=== PATIENT | male | born 1990 | race African-American/Black ===

== ENCOUNTER 2019-07-23 11:24 | Outpatient (CLI) | payer OTHER, SELFPAY ==
--- NOTE | ~2019-07-23 | XR_ITS ---
EXAMINATION: XR chest 2V DATE: 07/23/2019 12:26 INDICATION: Tobacco dependence. TECHNIQUE: Frontal and lateral views of the chest were obtained. COMPARISON: None. FINDINGS: The chest demonstrates clear lungs without pneumonia, pleural effusion, or pneumothorax. Th e heart size is normal. There is mild chronic anterior wedging of 2 midthoracic vertebral bodies. IMPRESSION: 1. No acute cardiopulmonary disease. Reviewed, dictated and finalized at location A. [employer] RECREATIONAL THERAPIST
--- NOTE | ~2019-07-23 | XR_ITS ---
EXAMINATION: XR knee RT min 4V DATE: 07/23/2019 12:26 INDICATION: Right knee pain. Effusion. TECHNIQUE: 4 views of right knee were obtained. COMPARISON: None. FINDINGS: Bone alignment is normal. There is mild tricompartmental osteoarthritis characterized by ti ny marginal osteophytes. No knee joint effusion. IMPRESSION: 1. Mild right knee osteoarthritis. Reviewed, dictated and finalized at location A. ECTOR PACKER
== END 2019-07-23 11:25 | disposition home or self-care (01) ==
PROVIDERS: Visit Provider Emergency Medicine
DX: M25.461 Effusion, right knee (principal); M17.11 Unilateral primary osteoarthritis, right knee
CPT/HCPCS: 71046; 73564

== ENCOUNTER 2020-06-22 06:51 | Outpatient (NON) | payer OTHER, SELFPAY ==
[2020-06-23 00:16] LABS: SARS-CoV-2 RNA PCR Negative
== END 2020-06-22 06:52 ==
LOC: ANHCOVIDDT 07:03
PROVIDERS: PCP Emergency Medicine; Visit Provider Emergency Medicine
DX: R68.89 Other general symptoms and signs (principal); Z20.822 Contact with and (suspected) exposure to COVID-19
CPT/HCPCS: C9803; U0003; U0005

== ENCOUNTER 2023-03-08 09:29 | Outpatient (CLI) | payer OTHER, SELFPAY ==
[2023-03-08 10:57] LABS: SARS-CoV-2 RNA PCR Positive (Negative)
== END 2023-03-08 09:30 | disposition home or self-care (01) ==
LOC: ANHLAB 09:30
PROVIDERS: PCP Emergency Medicine; Visit Provider Emergency Medicine
DX: R09.81 Nasal congestion (principal); Z20.822 Contact with and (suspected) exposure to COVID-19
CPT/HCPCS: 87635

== ENCOUNTER 2025-03-09 08:20 | Emergency (ER) | payer OTHER, SELFPAY ==
--- NOTE | 2025-03-09 08:22 | ED.ANIMALBIT ---
HPI - Animal Bite General Chief Complaint: Wound/Laceration Stated Complaint: dog bite Time Seen by Provider: 03/09/25 08:22 Source: patient Mode of arrival: ambulatory Limitations: no limitations History of Present Illness HPI narrative: Олег is a 34-year-old male patient presenting to the clinic today with complaints of dog bite to his right forearm. He reports at 6:30 a.m. this morning he was reaching down to change out the water bowl for a dog and the dog was eating out of his food bowl. The dog bit his right forearm causing to deep puncture wound-1 to the volar aspect in 1 to the dorsal forearm, and 3 abraded areas to the right forearm. Bleeding is controlled. Patient reports he did wash with soap and water. Has not taken anything for pain. Dog is UTD on vaccines. Tetanus is not up today. Related Data Home Medications ?Medication ?Instructions ?Recorded ?Confirmed ?Last Taken ?Type divalproex 500 mg tablet,delayed mg PO 03/09/25 Unknown History release sertraline 50 mg tablet mg 03/09/25 Unknown History Allergies Allergy/AdvReac Type Severity Reaction Status Date / Time No Known Allergies Allergy Mild Verified 03/09/25 08:42 Review of Systems Review of Systems: Pertinent positives per HPI. Patient denies any fever, chills, rash, headache, visual changes, dizziness, cough, runny nose, sore throat, shortness of breath, chest pain, palpitations, nausea, vomiting, diarrhea, constipation, abdominal pain, or any urinary issues. PMFSH Comments At the time of my signature, I reviewed and agree with the nursing past medical, surgical, social, and family history. There is no relevant family history pertinent to the patient complaint. Exam Narrative: General: Well-developed, well nourished, in no apparent distress Head: Normocephalic, atraumatic. Cardio: Regular rate and rhythm, s1 and s2 normal, no murmur appreciated. Resp: Clear to auscultation bilaterally, no rhonchi, rales, wheezing or rubs. Musculoskeletal: No deformity, non-tender to palpation, grossly normal range of motion, muscle strength strong and equal, peripheral pulse strong, no edema, no cyanosis, normal gait and statio Integumentary: [place], warm, and dry, 1 cm gapping puncture wound to the dorsal mid forearm and the volar mid forearm, has 3 superficial abraded puncture wounds- 1 to lateral forearm and 1 dorsal and 1 volar, bleeding controlled Course Course Emergency Course: Portions of this record may have been created with voice recognition software. Level of Care: Express Care Visit Vital Signs Vital signs: Vital Signs Temperature 36.4 C L 03/09/25 08:35 Pulse Rate 57 L 03/09/25 08:35 Respiratory Rate 16 03/09/25 08:35 Blood Pressure 169/93 H 03/09/25 08:35 Pulse Oximetry 95 03/09/25 08:35 Oxygen Delivery Room Air 03/09/25 08:35 Temperature 36.4 C L 03/09/25 08:35 Pulse Rate 57 L 03/09/25 08:35 Respiratory Rate 16 03/09/25 08:35 Blood Pressure 169/93 H 03/09/25 08:35 Pulse Oximetry 95 03/09/25 08:35 Oxygen Delivery Room Air 03/09/25 08:35 Vital signs reviewed MDM - Animal Bite MDM Narrative Medical decision making narrative: At the time of visit patient is resting comfortably on the exam table. Patient appears to be nontoxic. Complaints of dog bite to his right forearm. He reports at 6:30 a.m. this morning he was reaching down to change out the water bowl for a dog and the dog was eating out of his food bowl. The dog bit his right forearm causing to deep puncture wound-1 to the volar aspect in 1 to the dorsal forearm, and 3 abraded areas to the right forearm. Bleeding is controlled. Patient reports he did wash with soap and water. Has not taken anything for pain. Tetanus is not up today. On exam patient has 2 deep puncture wounds to the volar and dorsal forearm. Has 3 small abraded puncture wounds that do not require any treatment. Wounds were cleansed with soap and water and Steri-Strips and benzoin was applied to bring with puncture wound edges well approximate but allow for drainage. On exam 1 cm gapping puncture wound to the dorsal mid forearm and the volar mid forearm, has 3 superficial abraded puncture wounds- 1 to lateral forearm and 1 dorsal and 1 volar, bleeding controlled. Tdap, wound cleansing, and steri strips ordered. Medications: Tdap 0.5ml IM given in the clinic today. Plan: Patient has dog bite wound to the right [id number] applied over large gaping puncture wound. Tetanus shot was updated. Will send in prescription for Augmentin to cover for secondary infection. Dog was up-to-date on vaccinations and this was a provoked bite so I do not feel that rabies vaccine is needed. Recommend wound check in 2-3 days. Supportive measures were discussed with the patient and they voiced understanding discharge instructions and agrees to treatment plan. Return precautions reviewed Differential Diagnosis Differential diagnosis: Likely bite by animal, dog bite and rabies contact Discharge Plan Discharge Clinical Impression: Dog bite of right forearm Patient Disposition: Home Condition: Stable Instructions: Antibiotic Form, Animal Bite (ED) Additional Instructions: Tetanus updated in the clinic today Take Augmentin as prescribed May apply ice pack to help alleviate swelling May take Tylenol/ibuprofen as needed for pain as per bottle directions Leave bandage on for 24 hours then may remove and apply band aide covering as needed. Keep wound clean and dry Steri-Strips applied-keep in place and allow them to fall off on their own-if they start to peel up may trim them with scissors Go to the ED if you develop infection- Watch for signs and symptoms of infection-fever, redness, streaking, swelling, purulent discharge, or increase in pain. Follow up with your PCP in 2-3 days for a wound check. Patient Language: Portuguese Prescriptions: New amoxicillin-pot clavulanate 875-125 mg tablet 1 tablet PO Q12H 7 Days Qty: 14 0RF Follow-up/Referrals: Adarsh Yadav MD [Primary Care Provider, Family Practice] Stand Alone Forms: Work/School Release IP Time of Disposition: 08:43 Quality NIHSS Nursing Documentation ED NIHSS nursing documentation: reviewed/agree
[2025-03-09 08:35] VITALS: BP 169/93; PULSE 57; RESP 16; TEMP 36.4; O2SAT 95
[2025-03-09] MEDS: TETANUS,DIPHTHERIA,AC PERTUSSIS ADULT (0.5 ML) BOOSTRIX IM (08:46)
== END 2025-03-09 09:13 | disposition home or self-care (01) ==
LOC: EXPCOLL 08:28
PROVIDERS: Emergency Provider Nurse Practitioner Family; PCP Emergency Medicine
DX: S51.831A Puncture wound without foreign body of right forearm, initial encounter (principal); W54.0XXA Bitten by dog, initial encounter; Z23 Encounter for immunization
CPT/HCPCS: 90471; 90715; 99213; G0463